=== PATIENT | male | born 1935 | race Caucasian/White ===

== ENCOUNTER 2017-05-08 09:57 | Outpatient (CLI) | payer MEDICARE, BC ==
--- NOTE | 2017-05-08 12:25 | MRI ---
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 FINDINGS: Multiplanar, multisequence noncontrast-enhanced MRI images of the brain demonstrate age-appropriate c ortical atrophy and deep white matter ischemic changes. No evidence of areas of intracranial masses, hemorrhages, or strokes seen. No evidence of areas of diffusion restriction seen. Normal flow voids seen in the major intracranial vessels. The patient has had previous right catarac t surgery. Some fluid is seen in the left mastoid air cells. IMPRESSION: No evidence of acute intracranial pathology noted. Some fluid is seen in the left mastoid air cells. POS: [facility]
== END 2017-05-08 09:58 | disposition home or self-care (01) ==
LOC: SCSMRI 09:57
PROVIDERS: ATTEND Ophthalmology
DX: H49.11 Fourth [trochlear] nerve palsy, right eye (principal)
CPT/HCPCS: 70551

== ENCOUNTER 2017-09-26 10:41 | Inpatient (IN) | payer MEDICARE, BC ==
[2017-09-26 11:49] LABS: #Eosinphils 0.1 thou/uL (0.0-0.7); #Lymphocytes 1.6 thou/uL (1.20-3.40); #Monocytes 0.5 thou/uL (0.11-0.59); #Neutrophils 3.8 thou/uL (1.40-6.50); %Basophils 0.3 % (0.0-1.0); %Eosinophils 1.2 % (0.0-10.0); %Lymphocytes 26.1 % (21.0-51.0); %Neutrophils 63.3 % (42.0-75.0); Hemoglobin 13.6 g/dL (14.0-18.0); Mean Corpuscular HGB CONC 32.7 g/dL (32.0-36.0); Mean Corpuscular Volume 97.8 fl (80.0-94.0); Mean Platelet Volume 7.7 fL (7.4-10.4); Platelet Count 192 thou/uL (130-400); RBC Distribution Width 12.2 % (11.5-14.5); Red Blood Cell (RBC) Count 4.26 mill/uL (4.70-6.10); White Blood Cell (WBC) Count 5.9 thou/uL (4.8-10.8)
[2017-09-26 11:54] LABS: PTT 26.5 SEC (22.9-36.1); Prothrombin Time 13.4 SEC (12.0-14.7)
[2017-09-26 12:06] LABS: ALT (SGPT) Less than 7 U/L (8-55); AST (SGOT) 17 U/L (5-34); Alkaline Phosphatase 58 U/L (40-150); Anion Gap 8 mmol/L (10-20); BUN (Urea Nitrogen) 24 mg/dL (8.4-25.7); Bilirubin, Total 0.5 mg/dL (0.2-1.2); Calc. Creatinine Clearance 0 mL/min (70-130); Calcium 9.7 mg/dL (7.8-10.44); Carbon Dioxide 30 mmol/L (23-31); Chloride 106 mmol/L (98-107); Estimated GFR-MDRD 46; Globulin 2.4 g/dL (2.4-3.5); Glucose 96 mg/dL (83-110); Protein, Total 6.4 g/dL (5.8-8.1); Sodium 139 mmol/L (136-145)
[2017-09-26] MEDS ORDERED: Pantoprazole 80 MG, Admixture Fee 1 EACH in Sodium Chloride 0.9% 100 ML IVP SCH (13:15)
[2017-09-26] MEDS ORDERED: Pantoprazole 40 MG VIAL ONE (13:24)
[2017-09-26] MEDS ORDERED: hydrALAZINE 20 MG/ML VIAL SLOW IVP PRN (15:17)
[2017-09-26] MEDS ORDERED: Ondansetron ODT 4 MG TAB PO PRN (15:17)
[2017-09-26] MEDS ORDERED: Labetalol HCl 100 MG/20 ML VIAL SLOW IVP PRN (15:17)
[2017-09-26] MEDS ORDERED: Zolpidem Tartrate 5 MG TAB PO PRN (15:17)
[2017-09-26 15:53] LABS: Bilirubin Negative (Negative); Blood, Urine Negative (Negative); Clarity CLOUDY (Clear); Glucose, Urine (Dipstick) Negative (Negative); Leukocyte Small (Negative); Nitrite Positive (Negative); Protein, Urine (Dipstick) Negative (Neg-Trace); Urobilinogen 0.2 mg/dL (0.2-1.0)
[2017-09-26 15:56] LABS: Bacteria/HPF 2+ HPF (None Seen); RBC/HPF 0-3 HPF (0-3); Squamous Epithelial None Seen HPF (0-3)
[2017-09-26 16:01] LABS: Pathc Cast-AUWi Flag 9.88 (0-2.49)
[2017-09-26] MEDS ORDERED: hydrALAZINE 20 MG/ML VIAL ONE (16:02)
--- NOTE | 2017-09-26 16:03 | HP ---
PRIMARY CARE PHYSICIAN: Dr. Jeffrey Worthy. Referred to the [facility] for GI bleeding. HISTORY OF PRESENT ILLNESS: The patient presents with rectal bleeding. The blood is described as br ight red to current jelly looking. He has had no pain with bleeding. No abdominal pain, no nausea, vomiting, no previous diarrhea. He had one small bleed this morning about 5 hours ago and then had a large one about 10:00 a.m. This is his fourth episode of significant bleeding which has been relate d to a presence of extensive diverticulosis throughout his colon. PAST MEDICAL AND SURGICAL HISTORY: Recent diagnosis of Parkinson disease about 6 months ago. He has a history of hypertension, diverticulosis with bleeding, coronary artery disease, post-PTCA in 1990, moderate aortic regurgitation, dyslipidemia, hypothyroidism, history of bladder cancer, status post cystectomy with a bladder built out of ileum tissue, history of esophageal dilatation, history of TIA with negative MRI of the brain, presence of abdominal aortic aneurysm, prostate cancer post-prostate ctomy disease-free, left hip surgery, EGD and colonoscopy in the past. CURRENT MEDICATIONS: Lipitor 40 mg a day, Protonix 40 mg a day, Synthroid 175 mcg a day, Zetia 10 mg a day, Plavix 75 mg a day, aspirin 81 mg a day, fludrocortisone 0.1 mg once a day, folic acid 0.4 mg a day, Coenzyme Q10 of 200 mg a day, escitalopram 5 mg a day, vitamin D3, Ocuvite, Sinemet 25/100 th ree times a day. ALLERGIES: No known drug allergies. SOCIAL HISTORY: Occasional alcohol, no tobacco. , lives with . DNR status, agrees, surrogate decision maker. FAMILY HISTORY: Negative for stroke, coronary artery disease or cancer. REVIEW OF SYSTEMS: General: No headaches, dizziness or fainting. Eyes: He wears glasses with a pr ism to correct chronic diplopia which has been related to a fall with trauma to his posterior skull. No flashing lights, no blurred vision. ENT: No ear pain or drainage. No nasal bleeding. No troub le swallowing. Cardiac: No chest pain, orthopnea or paroxysmal nocturnal dyspnea. Respiratory: No cough, wheezing or asthma. Gastrointestinal: See present illness. Genitourinary: No hematuria, d ysuria despite having had a prostatectomy and cystectomy. He has had a rebuilt pouch from ileal tiss ue and voids normally. Musculoskeletal: No pain or swelling in his arms or legs. Neurologic: Hist ory of TIA in the past, history of double vision corrected history of Parkinson's. Psychiatric: No anxiety, depression. Skin: No bruising, bleeding or rash. Heme/lymph: No tender or swollen lymph nodes in axilla, inguinal or cervical area. PHYSICAL EXAMINATION: GENERAL: He is an alert, oriented, cooperative, pleasant gentleman. VITAL SIGNS: Blood pressure 186/74, pulse 60 plus or minus, respirations 15-16, temperature 98 plus or minus, O2 sat 96-97 on room air. HEENT: Reveal pupils equal, round, and reactive to light. Extraocular movements are intact. Sclera e white. Tympanic membranes clear. Nose is clear. Oral mucous membranes are wet. Dental hygiene i s good. NECK: Supple, without jugular venous distention, adenopathy or thyromegaly. CHEST: Clear to auscultation and percussion. HEART: Regular rate and rhythm. First and second heart sounds are clear. There are no murmurs or g allops. ABDOMEN: Soft, bowel sounds are normal. There is no hepatosplenomegaly, no masses, no rebound, no b ruits. EXTREMITIES: Reveal no cyanosis, clubbing or edema. PULSES: Carotid, radial, femoral, and dorsalis pedis pulses intact and symmetric. SKIN: Warm and dry without bruises or rash. HEME/LYMPH: No tender or swollen lymph nodes in axilla, inguinal or cervical area. NEUROLOGICAL: Cranial nerves II-XII are intact. Moves all extremities. Sensation is intact. IMAGING: No EKG presented. No x-rays have been done. LABORATORY: INR 1.0. Comp metabolic profile shows a creatinine of 1.46, BUN 24. Liver function nate ts normal. Electrolytes normal. Hemoglobin 13.6, platelet count 192,000, white count 5.9. ADMITTING DIAGNOSES: 1. Recurrent rectal bleeding in patient with severe diverticulosis on aspirin and Plavix. 2. Coronary artery disease. 3. Parkinson disease. 4. Hypertension. 5. Severe diverticulosis. 6. Chronic kidney disease, stage 3 on current exam. 7. Dyslipidemia. 8. Hypothyroidism. PLAN: 1. IV fluids. 2. Serial CBC q.6 hours. 3. Stop aspirin and Plavix. 4. Transfuse for hemoglobin less than 7. 5. Consult Dr. Leandro Patel, his airport operations officer. 6. Clear liquids. 7. Reinstitute appropriate home medicines. 8. Parenteral blood pressure control for the immediate present with labetalol and Apresoline IV. 9. DNR status, stated by , agreed to by .
[2017-09-26 16:07] LABS: Hyaline Casts/LPF 0-3 HYALINE CAST LPF (0-3 Hyaline); Manual Microscopic Reviewed? No Path Casts Seen
[2017-09-26 17:10] VITALS: BMI 27.4
[2017-09-26] MEDS: Sodium Chloride 0.9% 1,000 ML IV SCH (17:38)
--- NOTE | 2017-09-26 18:17 | CON ---
DATE OF CONSULTATION: 09/26/2017 CHIEF COMPLAINT: Blood in stool. HISTORY OF PRESENT ILLNESS: Mr. Vernon is an 82-year-old man who has had recurrent diverticular bleed ing in the past followed by Dr. Patel. This morning, he had a small bloody stool around 8:00 a.m. He had a second larger red bloody stool later in the morning, so came onto the emergency room for [facility] er care. He has had no further bleeding since. He just had the urge to have a bowel movement, but o nly pass gas. He has had no abdominal pain, nausea, vomiting. He has been diagnosed with Parkinson since his last GI evaluation and it has been started on Parkinson's medications. He states with this , he has developed chronic constipation. He was given MiraLax daily, but developed too frequent stoo ls with that, so lately just been taking a laxative on an as needed basis a stimulant laxative. His weight has been stable. His last dose of aspirin and Plavix were this morning. PAST MEDICAL HISTORY: Recurrent diverticular bleeding, history of TIA for which he has been on aspir in and Plavix, Parkinson disease, aortic regurgitation, history of coronary intervention with PTCA, d yslipidemia, hypothyroidism, bladder cancer, status post cystectomy. His last EGD was in 05/[address] Patel which was basically normal. His last colonoscopy was in 06/2013 that showed diverticulosis throughout the colon. Three polyps were removed by snare, but not retrieved. PAST SURGICAL HISTORY: Cataract surgery, hernia repair, cystectomy, EGD and multiple colonoscopies. FAMILY HISTORY: Negative for GI malignancy. SOCIAL HISTORY: Rare alcohol use. No drugs or smoking. ALLERGIES: No known drug allergies. MEDICATIONS PRIOR TO ADMISSION: Plavix 75 mg daily, aspirin 81 mg daily, Protonix 40 mg daily, Lipit or, Synthroid, Zetia, fludrocortisone, escitalopram, coenzyme Q10, Folic acid, vitamin D3, Sinemet. REVIEW OF SYSTEMS: Negative x10 systems reviewed except as stated in the history of present illness. PHYSICAL EXAMINATION: VITAL SIGNS: Temperature 97.7, pulse 93, blood pressure 159/69. GENERAL: He is in no acute distress, alert and oriented x3. HEENT: Eyes have no scleral icterus. Oropharynx is clear, without lesions. NECK: No cervical or supraclavicular lymphadenopathy. LUNGS: Clear to auscultation bilaterally. HEART: Regular rate and rhythm without murmur. ABDOMEN: Soft, nontender, nondistended, bowel sounds are present. EXTREMITIES: No lower extremity edema. LABORATORY: White blood cell count 5.9, hemoglobin 13.6, which is stable from 06/2017, platelets 192 . INR 1.0. Creatinine 1.46, albumin 4.0. IMPRESSION: 1. Recurrent diverticular hemorrhage. He had one larger episode and one smaller episode this mornin g. He has had no further bleeding since then. His hemoglobin is stable at 13.6. 2. Constipation since diagnosis of Parkinson disease and starting Sinemet. RECOMMENDATIONS: 1. We will give a clear liquid diet and reassess hemoglobin in the morning and follow for recurrent bleeding. If he has no further bleeding and his hemoglobin remains stable, then we can advance his d iet tomorrow and potentially discharge home tomorrow. 2. Because he had too frequent loose stools with MiraLax 17 grams daily, then is recommended to take MiraLax half a dose every day and a glass of water and then follow up in GI clinic in a couple of we eks to help titrate laxatives for him. He has been having a bowel movement about once every 3-4 days associated with his chronic constipation.
[2017-09-26 18:30] LABS: Hemoglobin 13.7 g/dL (14.0-18.0); Mean Corpuscular HGB CONC 32.8 g/dL (32.0-36.0); Mean Corpuscular Hemoglobin 31.9 pg (27.0-31.0); Mean Corpuscular Volume 97.5 fl (80.0-94.0); Mean Platelet Volume 9.3 fL (7.4-10.4); Platelet Count 104 thou/uL (130-400); RBC Distribution Width 12.3 % (11.5-14.5); White Blood Cell (WBC) Count 8.3 thou/uL (4.8-10.8)
[2017-09-26 18:52] LABS: #Eosinphils 0.1 thou/uL (0.0-0.7); #Monocytes 0.8 thou/uL (0.11-0.59); #Neutrophils 5.4 thou/uL (1.40-6.50); %Basophils 0.3 % (0.0-1.0); %Eosinophils 1.1 % (0.0-10.0); %Lymphocytes 24.3 % (21.0-51.0); %Monocytes 9.4 % (0.0-10.0); PLT Morphology Comment PLT clumps seen-ADEQ
[2017-09-27 00:02] LABS: Hemoglobin 12.3 g/dL (14.0-18.0); Mean Corpuscular Hemoglobin 32.2 pg (27.0-31.0); Mean Corpuscular Volume 97.4 fl (80.0-94.0); Platelet Count 170 thou/uL (130-400); RBC Distribution Width 12.3 % (11.5-14.5); Red Blood Cell (RBC) Count 3.83 mill/uL (4.70-6.10); White Blood Cell (WBC) Count 1.8 thou/uL (4.8-10.8)
[2017-09-27 00:26] LABS: Band 6 % (5-11); Lymphocytes 35 % (21-51); MDiff Complete? YES; Monocytes 11 % (0-10); Neutrophil 47 % (42-75)
[2017-09-27] MEDS: Acetaminophen 325 MG TAB PO PRN ×3 (01:44→21:23)
[2017-09-27] MEDS: Sodium Chloride 0.9% 1,000 ML IV SCH ×3 (01:46→16:23)
[2017-09-27 06:27] LABS: #Eosinphils 0.1 thou/uL (0.0-0.7); #Lymphocytes 1.3 thou/uL (1.20-3.40); #Monocytes 0.6 thou/uL (0.11-0.59); #Neutrophils 5.4 thou/uL (1.40-6.50); %Basophils 0.3 % (0.0-1.0); %Eosinophils 1.6 % (0.0-10.0); %Lymphocytes 17.6 % (21.0-51.0); %Monocytes 7.5 % (0.0-10.0); Hemoglobin 11.6 g/dL (14.0-18.0); Mean Corpuscular HGB CONC 34.1 g/dL (32.0-36.0); Mean Corpuscular Hemoglobin 32.9 pg (27.0-31.0); Mean Corpuscular Volume 96.4 fl (80.0-94.0); Mean Platelet Volume 7.2 fL (7.4-10.4); Platelet Count 168 thou/uL (130-400); RBC Distribution Width 12.2 % (11.5-14.5); Red Blood Cell (RBC) Count 3.52 mill/uL (4.70-6.10); White Blood Cell (WBC) Count 7.4 thou/uL (4.8-10.8)
[2017-09-27 06:48] LABS: Anion Gap 8 mmol/L (10-20); BUN (Urea Nitrogen) 22 mg/dL (8.4-25.7); Calc. Creatinine Clearance 62 mL/min (70-130); Calcium 8.8 mg/dL (7.8-10.44); Carbon Dioxide 26 mmol/L (23-31); Chloride 109 mmol/L (98-107); Estimated GFR-MDRD 59; Glucose 92 mg/dL (83-110); Potassium 4.3 mmol/L (3.5-5.1); Sodium 139 mmol/L (136-145)
--- NOTE | 2017-09-27 10:28 | PDOC.PN ---
- Subjective Encounter Start Date: 09/27/17 Encounter Start Time: 10:27 Subjective: small dark blood BM this am - Objective MAR Reviewed: Yes Vital Signs & Weight: Vital Signs (12 hours) Temp Pulse Resp BP BP Pulse Ox 09/27/17 08:00 97.8 F 85 16 96 09/27/17 07:17 97.8 F 85 16 142/68 H 96 09/27/17 03:45 97.6 F 86 18 117/62 95 09/27/17 02:13 90 154/67 H 09/27/17 01:46 83 196/79 H 09/27/17 01:27 97.2 F L 73 18 186/75 H 96 I&O: 09/26/17 09/27/17 09/28/17 06:59 06:59 06:59 Intake Total 1737 180 Output Total 400 Balance 1337 180 Result Diagrams: 09/27/17 06:10 09/27/17 06:10 Phys Exam - Physical Examination Neck: no JVD Respiratory: clear to auscultation bilateral Cardiovascular: RRR, no significant murmur Gastrointestinal: soft, non-tender, positive bowel sounds Musculoskeletal: no edema Dx/Plan (1) Diverticulosis of colon with hemorrhage Code(s): K57.31 - DVRTCLOS OF LG INT W/O PERFORATION OR ABSCESS W BLEEDING Status: Acute (2) CAD (coronary artery disease) Code(s): I25.10 - ATHSCL HEART DISEASE OF [place] CORONARY ARTERY W/O ANG PCTRS Status: Chronic Qualifiers: Coronary Disease-Associated Artery/Lesion type: [place] artery [place] vs. transplanted heart: [place] heart Associated angina: without angina Qualified Code(s): I25.10 - Atherosclerotic heart disease of [place] coronary artery without angina pectoris (3) HTN (hypertension) Code(s): I10 - ESSENTIAL (PRIMARY) HYPERTENSION Status: Chronic Qualifiers: Hypertension type: essential hypertension Qualified Code(s): I10 - Essential (primary) hypertension (4) Hypothyroidism Code(s): E03.9 - HYPOTHYROIDISM, UNSPECIFIED Status: Chronic Qualifiers: Hypothyroidism type: unspecified Qualified Code(s): E03.9 - Hypothyroidism , unspecified - Plan monitor VS, rpt CBC in AM. poss DC tomorrow if no bleeding and Hg stable * .
[2017-09-27] MEDS: Carbidopa/Levodopa 25-100 mg Tablet PO SCH ×2 (14:32→21:21)
[2017-09-27] MEDS ORDERED: CARBIDOPA PO SCH (15:00)
[2017-09-27] MEDS ORDERED: LEVODOPA PO SCH (15:00)
--- NOTE | 2017-09-27 16:05 | PRG ---
DATE OF SERVICE: 09/27/2017. SUBJECTIVE: Mr. Vernon passed one small bloody stool this morning. He has not had any bleeding since yesterday morning until now. His hemoglobin did decrease a little bit. PHYSICAL EXAMINATION: VITAL SIGNS: Temperature 97.8, pulse 85, blood pressure 142/68. GENERAL: He is in no acute distress, alert and oriented x3. LUNGS: Clear to auscultation bilaterally. HEART: Regular rate and rhythm. ABDOMEN: Soft, nontender, nondistended. Bowel sounds are present. EXTREMITIES: No lower extremity edema. LABORATORY DATA: Hemoglobin is 11.6. IMPRESSION: Diverticular hemorrhage. He had a small bloody bowel movement this morning, but had gerardo e without any bowel movement since as other episode prior to admission yesterday. It is unclear if h e is still passing prior old blood or if this is a new recurrent bleeding episode. Either way, it do es not seem to be large volume as he is only having infrequent episodes and his hemoglobin has decrea sed from 13.7-11.6 without rapid changes. He is hemodynamically stable. RECOMMENDATIONS: Recheck his hemoglobin in the morning and follow him clinically today. He is not q uite ready for discharge. I will advance his diet today to a heart healthy diet.
[2017-09-27] MEDS ORDERED: Ezetimibe 10 MG TAB PO SCH (21:00)
[2017-09-27] MEDS ORDERED: Atorvastatin Calcium 40 MG TAB PO SCH (21:00)
[2017-09-28] MEDS: Sodium Chloride 0.9% 1,000 ML IV SCH ×2 (00:50→05:38)
[2017-09-28 05:26] LABS: #Eosinphils 0.1 thou/uL (0.0-0.7); #Lymphocytes 1.3 thou/uL (1.20-3.40); #Monocytes 0.6 thou/uL (0.11-0.59); #Neutrophils 3.8 thou/uL (1.40-6.50); %Basophils 0.3 % (0.0-1.0); %Eosinophils 2.1 % (0.0-10.0); %Lymphocytes 21.9 % (21.0-51.0); %Monocytes 10.5 % (0.0-10.0); %Neutrophils 65.2 % (42.0-75.0); Hemoglobin 10.8 g/dL (14.0-18.0); Mean Corpuscular Hemoglobin 32.2 pg (27.0-31.0); Mean Corpuscular Volume 97.4 fl (80.0-94.0); Mean Platelet Volume 7.5 fL (7.4-10.4); Platelet Count 161 thou/uL (130-400); RBC Distribution Width 12.3 % (11.5-14.5); Red Blood Cell (RBC) Count 3.35 mill/uL (4.70-6.10); White Blood Cell (WBC) Count 5.9 thou/uL (4.8-10.8)
[2017-09-28] MEDS ORDERED: Levothyroxine 175 MCG TAB PO SCH (06:00)
[2017-09-28] MEDS: Carbidopa/Levodopa 25-100 mg Tablet PO SCH (08:49)
[2017-09-28] MEDS ORDERED: Fludrocortisone Acetate 0.1 MG TAB PO SCH (09:00)
[2017-09-28] MEDS ORDERED: Escitalopram Oxalate 10 mg Tablet PO SCH (09:00)
[2017-09-28] MEDS ORDERED: Folic Acid 1 MG TAB PO SCH (09:00)
[2017-09-28] MEDS ORDERED: UBIDECARENONE 10 MG PO SCH (09:00)
[2017-09-28] MEDS ORDERED: cefTRIAXone\\ROCEPHIN 1 GM in Sodium Chloride 0.9% 100 ML IVPB SCH (11:00)
--- NOTE | 2017-09-28 12:45 | PDOC.EVN ---
Event Note - Event Note Event Note: DC SUMMARY #[id number]
[2017-09-28 13:54] VITALS: BP 163/73; TEMP 97.7
--- NOTE | 2017-09-28 21:24 | DIS ---
DATE OF ADMISSION: 09/26/2017 DATE OF DISCHARGE: 09/28/2017 ADMITTING DIAGNOSES: Gastrointestinal bleed, history of Parkinson's disease, history of hypertension , history of diverticulitis, history of coronary artery disease, history of mitral regurgitation, dys lipidemia, hypothyroidism, history of bladder cancer, history of cholecystectomy as well as history o f prostate cancer status post prostatectomy. DISCHARGE DIAGNOSES: Gastrointestinal bleed secondary to diverticular bleeding, history of Parkinson 's disease, history of coronary artery disease, history of diverticular bleeding, history of mitral r egurgitation, history of dyslipidemia, history of hypothyroidism, history of bladder cancer, history of cholecystectomy, history of prostate cancer status post prostatectomy. HOSPITAL COURSE: This is an 82-year-old male who was admitted to the hospital complaining of GI blee d, black tarry stools. Patient had evaluation by Internal Medicine done as well as Gastroenterology. Patient was monitored closely, followed by both teams had hemoglobin checked frequently. Patient a dmitting hemoglobin was 13.7 and plan at time of discharge hemoglobin was 7.8. Prior hemoglobin day before was 11.6. Patient denied any bleeding at that point in time of discharge, patient did have so me question of possible UTI with 2+ bacteria, leukocyte esterase, and positive nitrite seen on urinal ysis. Patient was advised to follow up with PCP and GI within a week for further management and care . Patient denied any nausea, vomiting, diarrhea, constipation, chest pain, fevers, chills, or shortn ess of breath at this point of time on discharge. DISPOSITION: Home. FOLLOWUP: With PCP and GI within 1 week. MEDICATIONS: Resume home medications. DIET: Low-fat, low-calorie, high-fiber diet. ACTIVITY: As tolerated with assistance as appropriate. PROGNOSIS: Good. CONDITION: Stable. Case and plan discussed with patient at length. He understands and agrees with the plan.
== END 2017-09-28 14:39 | disposition home or self-care (01) | DRG 379 ==
LOC: ERS 10:41 → T4-B 17:07
PROVIDERS: ADMIT Internal Medicine; ATTEND Internal Medicine
DX: K57.91 Diverticulosis of intestine, part unspecified, without perforation or abscess with bleeding (principal); G20 Parkinson's disease; I25.10 Atherosclerotic heart disease of native coronary artery without angina pectoris; I12.9 Hypertensive chronic kidney disease with stage 1 through stage 4 chronic kidney disease, or unspecified chronic kidney disease; I35.1 Nonrheumatic aortic (valve) insufficiency; N18.3 Chronic kidney disease, stage 3 (moderate); E78.5 Hyperlipidemia, unspecified; E03.9 Hypothyroidism, unspecified; Z90.6 Acquired absence of other parts of urinary tract; Z86.73 Personal history of transient ischemic attack (TIA), and cerebral infarction without residual deficits; Z85.46 Personal history of malignant neoplasm of prostate; Z79.899 Other long term (current) drug therapy; Z90.49 Acquired absence of other specified parts of digestive tract; Z95.5 Presence of coronary angioplasty implant and graft; Z85.51 Personal history of malignant neoplasm of bladder
CPT/HCPCS: 36415; 80048; 80053; 81003; 81015; 82274; 85025; 85610; 85730; 86850; 86900; 86901; 96365; 96366; 96375; 96376; C9113; J0360; J0696; J7050

== ENCOUNTER 2018-01-21 14:09 | Outpatient (CLI) | payer MEDICARE, BC | END 2018-01-21 14:10 | disposition home or self-care (01) | LOC: BICRAD 14:09 | PROVIDERS: ATTEND Internal Medicine | DX: R05 Cough (principal) | CPT/HCPCS: 36415; 71046; 84443 ==

== ENCOUNTER 2018-06-22 13:01 | Emergency (ER) | payer MEDICARE, BC ==
[2018-06-22 13:39] LABS: #Eosinphils 0.1 thou/uL (0.0-0.7); #Lymphocytes 1.4 thou/uL (1.20-3.40); #Monocytes 0.5 thou/uL (0.11-0.59); #Neutrophils 4.2 thou/uL (1.40-6.50); %Basophils 0.1 % (0.0-1.0); %Eosinophils 0.9 % (0.0-10.0); %Lymphocytes 22.4 % (21.0-51.0); %Monocytes 8.4 % (0.0-10.0); %Neutrophils 68.2 % (42.0-75.0); Hemoglobin 13.8 g/dL (14.0-18.0); Mean Corpuscular HGB CONC 31.8 g/dL (32.0-36.0); Mean Corpuscular Hemoglobin 30.4 pg (27.0-31.0); Mean Corpuscular Volume 95.7 fL (78.0-98.0); Mean Platelet Volume 7.5 fL (7.4-10.4); Platelet Count 235 thou/uL (130-400); RBC Distribution Width 12.4 % (11.5-14.5); Red Blood Cell (RBC) Count 4.54 mill/uL (4.70-6.10); White Blood Cell (WBC) Count 6.2 thou/uL (4.8-10.8)
[2018-06-22 13:51] LABS: ALT (SGPT) Less than 7 U/L (8-55); AST (SGOT) 18 U/L (5-34); Albumin 4.1 g/dL (3.4-4.8); Alkaline Phosphatase 65 U/L (40-150); Anion Gap 13 mmol/L (10-20); BUN (Urea Nitrogen) 22 mg/dL (8.4-25.7); Bilirubin, Total 0.7 mg/dL (0.2-1.2); Calc. Creatinine Clearance 0 mL/min (70-130); Calcium 10.4 mg/dL (7.8-10.44); Carbon Dioxide 27 mmol/L (23-31); Chloride 105 mmol/L (98-107); Estimated GFR-MDRD 38; Globulin 2.6 g/dL (2.4-3.5); Glucose 118 mg/dL (83-110); Potassium 4.5 mmol/L (3.5-5.1); Protein, Total 6.7 g/dL (5.8-8.1); Sodium 140 mmol/L (136-145)
--- NOTE | 2018-06-22 14:23 | RAD ---
PORTABLE CHEST 1 VIEW: Date: 06/22/18 Time: 1243 hours HISTORY: Syncope. FINDINGS: Comparison made with exam of 05/01/18. The heart size is borderline. The lungs are well expanded without focal areas of consolidation, pneum othoraces, gustavo pulmonary edema, or pleural effusions. IMPRESSION: No radiographic evidence of acute cardiopulmonary process. POS: [facility]
== END 2018-06-22 15:24 | disposition home or self-care (01) ==
LOC: ERS 13:01
DX: I95.1 Orthostatic hypotension (principal); G20 Parkinson's disease; I10 Essential (primary) hypertension; E78.00 Pure hypercholesterolemia, unspecified; I25.2 Old myocardial infarction; Z79.899 Other long term (current) drug therapy; Z79.82 Long term (current) use of aspirin
CPT/HCPCS: 71045; 80053; 84484; 85025; 93005

== ENCOUNTER 2018-07-13 14:28 | Outpatient (CLI) | payer MEDICARE, BC ==
[~2018-07-13 14:28] MED LIST: Iopamidol 370 76% 100 ML VIAL ONE
--- NOTE | 2018-07-13 17:40 | CT ---
CT OF THE ABDOMEN AND PELVIS WITH AND WITHOUT IV CONTRAST: (UROGRAM PROTOCOL) DATE: 07/13/18 INDICATION: History of bladder cancer, follow-up exam. CONTRAST: 40 mL [id number]. COMPARISON: Abdominopelvic CT dated 02/20/08 from [facility]. FINDINGS: ABDOMEN: There is a calcified granuloma within the right middle lobe. There is mild bibasilar atelectasis. There is a small hiatal hernia. Adrenal glands and spleen appear within normal limits. No focal hepat ic lesion is evident. The pancreas appears within normal limits. There are small renal cysts involving the left kidney. There is a 1.4 cm enhancing solid mass within the left mid kidney on image 59 of series 3. The precontrast Hounsfield unit was 50.66. The postcontr ast Hounsfield unit was 63.83. No hydronephrosis evident. No renal or ureteral calculus is noted. There is an infrarenal abdominal aortic aneurysm measuring 4.8 x 4.4 cm in its greatest mediolateral AP dimensions, respectively, where it previously measured 3.9 x 3.8 cm on the prior exam in 2007. The re are scattered vascular calcifications. There are multiple small anterior abdominal wall hernias containing a tiny amount of omental fat. The re is a fat-containing periumbilical hernia. PELVIS: There are postsurgical changes of a bladder resection with development of a neobladder within the rig ht lower quadrant of the abdomen and lower pelvis. Both ureters insert to the neobladder within the l ower abdomen. No gross mass is evident within the region of the neobladder. No gross urothelial lesio n is seen within the segmentally opacified ureters. No free fluid or enlarged lymph nodes are evident. There is scattered diverticula involving the colon. There is mild fat stranding seen adjacent to the sigmoid colon on image 132 of series 3. A component of sigmoid diverticula cannot be entirely exclude d. There is a moderate amount of retained stool. There is no evidence of bowel obstruction. There is a normal appendix in the right lower quadrant. There is mild dilatation of a loop of small bowel with in the right lower quadrant of the abdomen near the ileal anastomosis. There is postsurgical change of a fracture repair of the left femur. There is mild scattered degenera tive change. No suspicious osteolytic or osteoblastic lesion is evident. IMPRESSION: 1. Postsurgical change of a bladder resection with establishment of a neobladder. No gross urothelia l lesion is evident. 2. 1.5 cm enhancing solid lesion left mid kidney is suspicious for a renal cell carcinoma. This was seen as a hyperdense lesion on the comparison examination in 2007 and has mildly grown since the prio r exam. 3. Interval enlargement of infrarenal abdominal aortic aneurysm now measuring up to 4.4 x 4.8 cm, wh ere it previously measured 3.8 x 3.9 cm. 4. Sigmoid diverticula with mild pericolonic inflammatory stranding may reflect a mild amount of sig moid diverticulitis. 5. Small hiatal hernia. 6. Other chronic findings as above. CODE T. POS: [facility]
== END 2018-07-13 14:29 | disposition home or self-care (01) ==
LOC: BICCT 14:28
PROVIDERS: ATTEND Urology
DX: C67.9 Malignant neoplasm of bladder, unspecified (principal); K44.9 Diaphragmatic hernia without obstruction or gangrene; N28.89 Other specified disorders of kidney and ureter; K57.30 Diverticulosis of large intestine without perforation or abscess without bleeding; Z98.890 Other specified postprocedural states
CPT/HCPCS: 74178; Q9967

== ENCOUNTER 2018-10-08 08:23 | Outpatient (CLI) | payer MEDICARE, BC ==
--- NOTE | 2018-10-08 14:27 | NM ---
NUCLEAR MEDICINE BRAIN IMAGING: HISTORY: Unspecified abnormalities of gait and mobility TECHNIQUE: A Gustavo scan with axial tomographic images of the brain was obtained 3 hours following the intravenous administration of 4.8 mCi I-123 Ioflupane. The patient was pretreated with 130 mg of oral potassium iodide 1 hour prior to the injection. FINDINGS: There is normal symmetric uptake in the striata bilaterally, demonstrating symmetric, crescent-shaped focal regions of activity mirrored about the median plane. IMPRESSION: Normal exam.
== END 2018-10-08 08:24 | disposition home or self-care (01) ==
LOC: NM 08:23
PROVIDERS: ATTEND Psychiatry & Neurology Neurology
DX: G20 Parkinson's disease (principal); R26.9 Unspecified abnormalities of gait and mobility; I95.1 Orthostatic hypotension
CPT/HCPCS: 78607; A9584

== ENCOUNTER 2019-01-19 08:19 | Outpatient (CLI) | payer MEDICARE, BC ==
--- NOTE | 2019-01-19 09:29 | MRI ---
MRI BRAIN WITHOUT CONTRAST: HISTORY: Parkinson's disease COMPARISON: 05/08/2017 FINDINGS: No restricted diffusion is seen. There are multiple foci of T2 prolongation in the periventricular wh ite matter, consistent with chronic small vessel ischemic disease. The ventricular size is appropriate and the basilar cisterns are patent. No evidence of acute infarct, hemorrhage, midline shift or abnormal extra-axial fluid collections is seen. There is mild mucosal disease in the paranasal sinuses. A small amount of fluid is seen in the mastoi d air cells. IMPRESSION: No evidence of acute intracranial process.
== END 2019-01-19 08:20 | disposition home or self-care (01) ==
LOC: BICMRI 08:19
DX: G20 Parkinson's disease (principal)
CPT/HCPCS: 70551

== ENCOUNTER 2019-03-18 07:52 | Outpatient (CLI) | payer MEDICARE, BC ==
--- NOTE | 2019-03-18 08:47 | ULT ---
ULTRASOUND ABDOMINAL AORTA: HISTORY: Abdominal aortic aneurysm FINDINGS: There is a 3.5 x 4.3 x 4.1 cm infrarenal abdominal aortic aneurysm. The right common iliac artery measures 6 mm in diameter and the left common iliac artery also measure s 6 mm in diameter. The exam is limited by bowel gas. Impression abdominal aortic aneurysm measuring 3.5 x 4.3 x 4.1 cm.
== END 2019-03-18 07:53 | disposition home or self-care (01) ==
LOC: BICULT 07:52
PROVIDERS: ATTEND Internal Medicine
DX: I71.4 Abdominal aortic aneurysm, without rupture (principal)
CPT/HCPCS: 36415; 76706; 80053; 80061; 80069; 81001; 82570; 84153; 84156; 84443; 85025

== ENCOUNTER 2020-07-13 10:23 | Outpatient (CLI) | payer MEDICARE, BC ==
--- NOTE | 2020-07-13 11:37 | CT ---
CT Abdomen Pelvis WO Con 07/13/2020 10:40 AM HISTORY: Follow-up abdominal aortic aneurysm. COMPARISON: CT abdomen 02/20/2008 Technique: Multiple contiguous axial CT images are obtained through the abdomen and pelvis without IV contrast. Coronal reformats are provided. FINDINGS: This examination is limited for the evaluation of solid organs and vascular structures due to the lac k of intravenous contrast. Lower Chest: Vascular calcifications are seen in the limited visualized coronary arteries as well as distal thoracic aorta. Lung bases are clear. Liver: Grossly normal non-enhanced CT appearance. Gallbladder: Within normal limits for CT imaging. Pancreas: Grossly normal nonenhanced CT appearance. Spleen: Grossly normal nonenhanced CT appearance. Adrenals: Grossly normal nonenhanced CT appearance. Kidneys and ureters: Hypodense lesions inferior pole left kidney measuring 1.7 cm and 1.4 cm in great est dimension with 1.4 cm hyperdense cystic lesion also seen inferior pole left kidney. The hyperdense lesion was seen on study in 2007 and unchanged likely due to Bosniak type II renal cystic lesion. Hypodense lesion anterior aspect inferior pole left kidney was seen on prior study and likely represents a cyst given stability over this period of time. Hypodense lesion adjacent to the h yperdense cystic lesion is difficult to characterize on this nonenhanced CT exam but does demonstrate fluid attenuation suggesting a cyst on nonenhanced imaging. Urinary bladder: There are findings suggestive of neobladder in the pelvis with multiple surgical cli ps present and evidence of prostatectomy. Lymph Nodes: No enlarged lymph nodes. Bowel: Postoperative changes loop of small bowel in the right lower quadrant. There is extensive colo angela diverticulosis. Appendix: The appendix is normal in caliber. Peritoneum: No free fluid, free air, or fluid collection. Retroperitoneum: within normal limits. Vessels: Vascular calcifications are seen in the abdominal aorta and iliac arteries. There is a lobul ated juxtarenal abdominal aortic aneurysm which measures 5.4 cm transverse x4.4 cm AP with measurements on prior study in 2007 of 3.8 cm transverse x3.7 cm AP. Greatest dimension on ultrasound examination 2019 was 4.3 cm. The iliac arteries are normal in caliber. Abdominal Wall: Tiny densities left anterior abdominal wall the level of the pelvis likely due to mes h material from prior surgery. Ventilatory stranding is seen in the left inguinal region related to prior left inguinal hernia repair. A fat-containing ventral abdominal wall hernia is present as well as tiny fat-containing umbilical hernia. Bones: Postoperative changes left hip are present. Degenerative changes are seen in the spine. IMPRESSION: 1. Lobulated juxtarenal abdominal aortic aneurysm measuring 5.4 cm x 4.4 cm which has enlarged compar ed to study in 2007 with measurements on prior study of 3.8 cm in maximal dimension. 2. Vascular calcifications. 3. Postoperative changes related to prostatectomy with findings likely due to formation of neobladder . There is no hydronephrosis present. 4. 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 5. Colonic diverticulosis.
== END 2020-07-13 10:24 | disposition home or self-care (01) ==
LOC: BICCT 10:23
PROVIDERS: ATTEND Thoracic Surgery (Cardiothoracic Vascular Surgery)
DX: I71.4 Abdominal aortic aneurysm, without rupture (principal); I70.0 Atherosclerosis of aorta; N28.1 Cyst of kidney, acquired; K57.30 Diverticulosis of large intestine without perforation or abscess without bleeding; I70.8 Atherosclerosis of other arteries; Z90.79 Acquired absence of other genital organ(s)
CPT/HCPCS: 74176

== ENCOUNTER 2020-07-28 13:45 | Inpatient (IN) | payer MEDICARE, BC ==
[2020-07-28 16:53] LABS: #Eosinphils 0.1 10x3/uL (0.0-0.5); #Monocytes 0.6 10x3/uL (0.0-1.1); #Neutrophils 3.9 10x3/uL (1.5-8.4); %Basophils 0.6 % (0.0-2.0); %Eosinophils 1.6 % (0.0-6.0); %Lymphocytes 26.6 % (18.0-47.0); %Monocytes 9.5 % (0.0-10.0); %Neutrophils 61.4 % (40.0-75.0); Hemoglobin 11.8 g/dL (13.5-17.5); Mean Corpuscular HGB CONC 31.9 g/dL (32.0-36.0); Mean Corpuscular Hemoglobin 31.6 pg (27.0-33.0); Mean Corpuscular Volume 99.2 fl (81.2-95.1); Mean Platelet Volume 10.6 fl (7.4-10.4); Platelet Count 183 10x3/uL (150-450); RBC Distribution Width 12.4 % (11.5-14.5); Red Blood Cell (RBC) Count 3.73 10x6/uL (4.32-5.72); White Blood Cell (WBC) Count 6.4 10x3/uL (3.5-10.5)
[2020-07-28 17:05] LABS: Anion Gap 11 mmol/L (10-20); BUN (Urea Nitrogen) 30 mg/dL (8.4-25.7); Calc. Creatinine Clearance 0 mL/min (70-130); Calcium 9.7 mg/dL (7.8-10.44); Carbon Dioxide 28 mmol/L (23-31); Chloride 106 mmol/L (98-107); Glucose 90 mg/dL (83-110); Sodium 140 mmol/L (136-145)
[2020-08-02] MEDS ORDERED: Fentanyl 250 MCG/5 ML VIAL ONE (06:50)
[2020-08-02] MEDS ORDERED: Phenylephrine 10 MG/ML VIAL ONE (06:50)
[2020-08-02] MEDS ORDERED: Heparin 10,000 UNITS/ 10 ML VIAL ONE (06:56)
[2020-08-02] MEDS ORDERED: Norepinephrine 4 MG/4 ML VIAL ONE (07:03)
[2020-08-02] MEDS ORDERED: Albumin 5% 500 ML ONE (07:03)
[2020-08-02] MEDS ORDERED: Dexmedetomidine 200 MCG/2 ML VIAL ONE (07:03)
[2020-08-02] MEDS ORDERED: Midazolam HCl 2 mg/2 ml Vial ONE (07:12)
[2020-08-02] MEDS ORDERED: Ondansetron ODT 4 MG TAB ONE (07:12)
[2020-08-02] MEDS ORDERED: Vecuronium 10 MG VIAL ONE (08:03)
[2020-08-02] MEDS ORDERED: Ondansetron PF 4 MG/2 ML Vial ONE (08:03)
[2020-08-02] MEDS ORDERED: Rocuronium Bromide 10 MG/ML (10ML VIAL) ONE (08:03)
[2020-08-02] MEDS ORDERED: Glycopyrrolate 0.2 MG/ML 5 ML SYRINGE ONE (08:03)
[2020-08-02] MEDS ORDERED: Dexamethasone 20 MG/5 ML VIAL ONE (08:03)
[2020-08-02] MEDS ORDERED: Lidocaine 1% PF 5 ML VIAL ONE (08:03)
[2020-08-02] MEDS ORDERED: PROPOFOL 200 MG/20 ML VIAL ONE (08:03)
[2020-08-02] MEDS ORDERED: Nitroglycerin 50 MG/250 ML BOT 250 ML ONE (08:26)
[2020-08-02] MEDS ORDERED: Protamine Sulfate 50 MG/5 ML VIAL ONE (11:12)
[2020-08-02] MEDS ORDERED: Acetaminophen 325 MG TAB PO PRN (12:23)
[2020-08-02] MEDS ORDERED: Ondansetron PF 4 MG/2 ML Vial IVP PRN (12:23)
[2020-08-02] MEDS ORDERED: HYDROcodone/Acetaminophen 5/325 mg Tablet PO PRN ×2 (12:23)
[2020-08-02] MEDS ORDERED: Norepinephrine 8 MG/0.9% NS 250 ML IVPB PRN (12:23)
[2020-08-02] MEDS ORDERED: Fentanyl 100 MCG/2 ML VIAL ONE ×2 (13:42→16:06)
[2020-08-02] MEDS ORDERED: Sterile Water 10 ML ONE (14:10)
[2020-08-02] MEDS ORDERED: Ondansetron HCl/PF 4 MG/2 ML Vial IVP PRN (15:23)
[2020-08-02] MEDS ORDERED: Promethazine HCl 25 MG/ML VIAL SLOW IVP PRN (15:23)
[2020-08-02] MEDS ORDERED: Promethazine HCl 25 MG/ML VIAL IM PRN (15:23)
[2020-08-02 15:24] LABS: #Monocytes 0.4 thou/uL (0.11-0.59); #Neutrophils 9.5 thou/uL (1.40-6.50); %Basophils 0.4 % (0.0-1.0); %Eosinophils 0.1 % (0.0-10.0); %Lymphocytes 9.4 % (21.0-51.0); %Neutrophils 86.2 % (42.0-75.0); Hemoglobin 9.7 g/dL (14.0-18.0); Mean Corpuscular HGB CONC 32.2 g/dL (32.0-36.0); Mean Corpuscular Hemoglobin 32.3 pg (27.0-31.0); Mean Platelet Volume 8.1 fL (7.4-10.4); Platelet Count 156 thou/uL (130-400); RBC Distribution Width 11.8 % (11.5-14.5); Red Blood Cell (RBC) Count 3.01 mill/uL (4.70-6.10)
[2020-08-02] MEDS: Lactated Ringer's 1,000 ML IV SCH ×2 (17:46→19:24)
[2020-08-02] MEDS: CEFAZOLIN 2 GM in Premix Bag 1 BAG IVPB SCH ×2 (17:46→23:24)
[2020-08-02 17:48] VITALS: BMI 27.3
[2020-08-02] MEDS: Fentanyl 100 MCG/2 ML VIAL SLOW IVP PRN ×3 (19:24→23:22)
[2020-08-03] MEDS ORDERED: Morphine 2 MG/ML VIAL SLOW IVP PRN (00:06)
[2020-08-03] MEDS ORDERED: Morphine 10 MG/ML VIAL SLOW IVP PRN (00:06)
[2020-08-03] MEDS ORDERED: Naloxone HCl 0.4 mg/ml Vial ONE ×5 (02:59→03:23)
[2020-08-03] MEDS ORDERED: Naloxone HCl 0.4 mg/ml Vial IV PRN (04:04)
[2020-08-03] MEDS: Lactated Ringer's 1,000 ML IV SCH ×3 (04:26→19:46)
[2020-08-03 04:29] LABS: #Lymphocytes 0.6 thou/uL (1.20-3.40); #Monocytes 0.9 thou/uL (0.11-0.59); #Neutrophils 10.5 thou/uL (1.40-6.50); %Basophils 0.1 % (0.0-1.0); %Eosinophils 0.1 % (0.0-10.0); %Lymphocytes 4.8 % (21.0-51.0); %Monocytes 7.5 % (0.0-10.0); %Neutrophils 87.6 % (42.0-75.0); Hemoglobin 9.8 g/dL (14.0-18.0); Mean Corpuscular HGB CONC 31.9 g/dL (32.0-36.0); Mean Corpuscular Hemoglobin 32.3 pg (27.0-31.0); Mean Platelet Volume 7.9 fL (7.4-10.4); Platelet Count 189 thou/uL (130-400); Red Blood Cell (RBC) Count 3.05 mill/uL (4.70-6.10)
[2020-08-03 04:52] LABS: Anion Gap 15 mmol/L (10-20); BUN (Urea Nitrogen) 30 mg/dL (8.4-25.7); Calc. Creatinine Clearance 35 mL/min (70-130); Calcium 7.9 mg/dL (7.8-10.44); Carbon Dioxide 20 mmol/L (23-31); Chloride 111 mmol/L (98-107); Glucose 200 mg/dL (83-110); Potassium 6.1 mmol/L (3.5-5.1); Sodium 140 mmol/L (136-145)
[2020-08-03] MEDS: Nitroglycerin 50 MG/250 ML BOT 250 ML IVPB PRN (05:04)
[2020-08-03] MEDS: CEFAZOLIN 2 GM in Premix Bag 1 BAG IVPB SCH (07:53)
[2020-08-03] MEDS: Fentanyl 100 MCG/2 ML VIAL SLOW IVP PRN ×7 (08:46→20:58)
[2020-08-03] MEDS: Enoxaparin Sodium 30 MG/0.3 ML SYRINGE SC SCH (08:49)
[2020-08-03] MEDS: Aspirin Chewable 81 MG TAB PO SCH (10:30)
[2020-08-03] MEDS: Acetaminophen 650 MG Suppository PR PRN ×2 (13:36→21:20)
[2020-08-03] MEDS: Budesonide 0.5 MG/2 ML NEB NEB SCH (19:04)
[2020-08-04] MEDS: Fentanyl 100 MCG/2 ML VIAL SLOW IVP PRN ×6 (00:13→20:05)
[2020-08-04] MEDS: Lactated Ringer's 1,000 ML IV SCH ×5 (00:14→21:04)
[2020-08-04 03:52] LABS: #Lymphocytes 1.2 thou/uL (1.20-3.40); #Monocytes 1.2 thou/uL (0.11-0.59); %Basophils 0.2 % (0.0-1.0); %Eosinophils 0.1 % (0.0-10.0); %Lymphocytes 9.8 % (21.0-51.0); %Monocytes 9.4 % (0.0-10.0); %Neutrophils 80.6 % (42.0-75.0); Hemoglobin 8.8 g/dL (14.0-18.0); Mean Corpuscular HGB CONC 33.1 g/dL (32.0-36.0); Mean Corpuscular Hemoglobin 33.2 pg (27.0-31.0); Mean Platelet Volume 7.7 fL (7.4-10.4); Platelet Count 144 thou/uL (130-400); Red Blood Cell (RBC) Count 2.63 mill/uL (4.70-6.10); White Blood Cell (WBC) Count 12.4 thou/uL (4.8-10.8)
[2020-08-04 04:11] LABS: Anion Gap 12 mmol/L (10-20); BUN (Urea Nitrogen) 32 mg/dL (8.4-25.7); Calc. Creatinine Clearance 38 mL/min (70-130); Calcium 8.1 mg/dL (7.8-10.44); Carbon Dioxide 22 mmol/L (23-31); Chloride 112 mmol/L (98-107); Glucose 129 mg/dL (83-110); Potassium 4.7 mmol/L (3.5-5.1); Sodium 141 mmol/L (136-145)
[2020-08-04] MEDS: Nitroglycerin 50 MG/250 ML BOT 250 ML IVPB PRN (05:30)
[2020-08-04] MEDS: Levothyroxine 175 MCG TAB PO SCH ×2 (05:44→07:17)
[2020-08-04] MEDS: Budesonide 0.5 MG/2 ML NEB NEB SCH ×2 (08:21→19:02)
[2020-08-04] MEDS: Enoxaparin Sodium 30 MG/0.3 ML SYRINGE SC SCH (08:59)
[2020-08-04] MEDS: Aspirin Chewable 81 MG TAB PO SCH (08:59)
[2020-08-05] MEDS: Fentanyl 100 MCG/2 ML VIAL SLOW IVP PRN ×3 (00:24→07:56)
[2020-08-05 05:05] LABS: Anion Gap 12 mmol/L (10-20); BUN (Urea Nitrogen) 25 mg/dL (8.4-25.7); Calc. Creatinine Clearance 47 mL/min (70-130); Calcium 8.8 mg/dL (7.8-10.44); Carbon Dioxide 24 mmol/L (23-31); Chloride 112 mmol/L (98-107); Glucose 92 mg/dL (83-110); Potassium 4.3 mmol/L (3.5-5.1); Sodium 144 mmol/L (136-145)
[2020-08-05] MEDS: Levothyroxine 175 MCG TAB PO SCH (05:18)
[2020-08-05] MEDS: Budesonide 0.5 MG/2 ML NEB NEB SCH ×2 (07:14→18:29)
[2020-08-05] MEDS: Lactated Ringer's 1,000 ML IV SCH ×2 (08:30→17:31)
[2020-08-05] MEDS: Enoxaparin Sodium 30 MG/0.3 ML SYRINGE SC SCH (09:05)
[2020-08-05] MEDS: Escitalopram Oxalate 10 mg Tablet PO SCH (09:05)
[2020-08-05] MEDS: Aspirin Chewable 81 MG TAB PO SCH (09:05)
[2020-08-05] MEDS ORDERED: Acetaminophen 325 MG TAB PO PRN (16:45)
[2020-08-05] MEDS: Amlodipine 5 MG TAB PO SCH (20:18)
[2020-08-06] MEDS: Levothyroxine 175 MCG TAB PO SCH (05:24)
[2020-08-06] MEDS: Budesonide 0.5 MG/2 ML NEB NEB SCH ×2 (07:08→18:14)
[2020-08-06] MEDS: Escitalopram Oxalate 10 mg Tablet PO SCH (08:44)
[2020-08-06] MEDS: Enoxaparin Sodium 30 MG/0.3 ML SYRINGE SC SCH (08:44)
[2020-08-06] MEDS: Aspirin Chewable 81 MG TAB PO SCH (08:44)
[2020-08-06] MEDS ORDERED: Furosemide 40 MG/4 ML VIAL SLOW IVP SCH (09:45)
[2020-08-06] MEDS: Lactated Ringer's 1,000 ML IV SCH (13:39)
[2020-08-06] MEDS: Amlodipine 5 MG TAB PO SCH (19:40)
[2020-08-07] MEDS: Levothyroxine 175 MCG TAB PO SCH (03:04)
[2020-08-07] MEDS: Amlodipine 5 MG TAB PO SCH ×2 (08:03→19:41)
[2020-08-07] MEDS: Aspirin Chewable 81 MG TAB PO SCH (08:03)
[2020-08-07] MEDS: Escitalopram Oxalate 10 mg Tablet PO SCH (08:04)
[2020-08-07] MEDS: Enoxaparin Sodium 30 MG/0.3 ML SYRINGE SC SCH (08:04)
[2020-08-07] MEDS: Budesonide 0.5 MG/2 ML NEB NEB SCH ×2 (09:03→19:07)
[2020-08-08] MEDS: Amlodipine 5 MG TAB PO SCH (03:51)
[2020-08-08] MEDS: Levothyroxine 175 MCG TAB PO SCH (03:51)
[2020-08-08] MEDS ORDERED: Polyethylene Glycol 3350 17 GM Packet PO PRN (06:48)
[2020-08-08] MEDS ORDERED: traMADol HCl 50 MG TAB PO PRN (07:00)
[2020-08-08] MEDS ORDERED: Furosemide 40 MG TAB PO SCH (07:15)
[2020-08-08] MEDS: Budesonide 0.5 MG/2 ML NEB NEB SCH (07:40)
[2020-08-08] MEDS: Escitalopram Oxalate 10 mg Tablet PO SCH (08:13)
[2020-08-08] MEDS: Enoxaparin Sodium 30 MG/0.3 ML SYRINGE SC SCH (08:14)
[2020-08-08] MEDS: Aspirin Chewable 81 MG TAB PO SCH (08:14)
[2020-08-08] MEDS ORDERED: Polyethylene Glycol 3350 17 GM Packet PO SCH (09:00)
[2020-08-08 11:59] VITALS: BP 146/65; TEMP 97.5
== END 2020-08-08 11:55 | disposition home or self-care (01) | DRG 268 ==
LOC: SURG A 08-02 06:14 → CCU 08-02 17:36 → SURG A 08-05 16:54
PROVIDERS: ADMIT Thoracic Surgery (Cardiothoracic Vascular Surgery); ATTEND Thoracic Surgery (Cardiothoracic Vascular Surgery)
PROC: 04R00JZ Replacement of Abdominal Aorta with Synthetic Substitute, Open Approach (ICD-10-PCS; principal; 2020-08-02)
DX: I71.4 Abdominal aortic aneurysm, without rupture (principal); J96.91 Respiratory failure, unspecified with hypoxia; Z20.822 Contact with and (suspected) exposure to COVID-19; I25.10 Atherosclerotic heart disease of native coronary artery without angina pectoris; E78.5 Hyperlipidemia, unspecified; E03.9 Hypothyroidism, unspecified; I12.9 Hypertensive chronic kidney disease with stage 1 through stage 4 chronic kidney disease, or unspecified chronic kidney disease; N18.9 Chronic kidney disease, unspecified; F32.9 Major depressive disorder, single episode, unspecified; E66.01 Morbid (severe) obesity due to excess calories; Z79.890 Hormone replacement therapy; Z79.899 Other long term (current) drug therapy; I25.2 Old myocardial infarction; Z85.46 Personal history of malignant neoplasm of prostate; Z68.25 Body mass index [BMI] 25.0-25.9, adult; Z79.82 Long term (current) use of aspirin
CPT/HCPCS: 36415; 36416; 71045; 80048; 84443; 85025; 86850; 86900; 86901; 93005; 93010; 94640; C1751; J0690; J1100; J1642; J1644; J1650; J1940; J2250; J2270; J2370; J2405; J2704; J2720; J3010; J7620; J7626; P9045; Q0162

== ENCOUNTER 2020-07-28 15:05 | Outpatient (CLI) | payer MEDICARE, BC ==
[2020-07-29 01:49] LABS: SARS-CoV-2 PCR by NAA Not Detected (NotDetected)
== END 2020-07-28 15:06 | disposition home or self-care (01) ==
LOC: LABBT 15:05
PROVIDERS: ATTEND Thoracic Surgery (Cardiothoracic Vascular Surgery)
DX: Z01.812 Encounter for preprocedural laboratory examination (principal); I71.4 Abdominal aortic aneurysm, without rupture; Z20.822 Contact with and (suspected) exposure to COVID-19
CPT/HCPCS: 80048; 85025; 86850; 86900; 86901; 86920; U0003; U0005; 87635

== ENCOUNTER 2020-09-18 12:58 | Emergency (ER) | payer MEDICARE, BC | END 2020-09-18 15:40 | disposition home or self-care (01) | LOC: ERS 12:58 | DX: S00.01XA Abrasion of scalp, initial encounter (principal); Z79.899 Other long term (current) drug therapy; Z79.82 Long term (current) use of aspirin; I10 Essential (primary) hypertension; E78.00 Pure hypercholesterolemia, unspecified; I25.2 Old myocardial infarction; Z87.891 Personal history of nicotine dependence; W01.198A Fall on same level from slipping, tripping and stumbling with subsequent striking against other object, initial encounter | CPT/HCPCS: 70450; 72125 ==

== ENCOUNTER 2023-08-05 07:49 | Outpatient (CLI) | payer MEDICARE, BC | END 2023-08-05 07:50 | disposition home or self-care (01) | LOC: BICCT 07:49 | PROVIDERS: ATTEND Physician Assistant | DX: K43.9 Ventral hernia without obstruction or gangrene (principal) | CPT/HCPCS: 74176 ==

== ENCOUNTER 2025-04-22 21:55 | Inpatient (IN) | payer MEDICARE, BC ==
[2025-04-22 22:35] LABS: #Basophils 0.05 10x3/uL (0.0-0.2); #Eosinophils 0.23 10x3/uL (0.0-0.7); #Monocytes 0.68 10x3/uL (0.11-0.59); #Neutrophils 3.18 10x3/uL (1.40-6.50); %Basophils 0.5 % (0.0-1.0); %Eosinophils 2.5 % (0.0-10.0); %Lymphocytes 54.6 % (21.0-51.0); %Monocytes 7.4 % (0.0-10.0); %Neutrophils 34.8 % (42.0-75.0); Hematocrit 31.2 % (42.0-52.0); Hemoglobin 10.1 g/dL (14.0-18.0); Mean Corpuscular Hemoglobin 30.6 pg (27.0-31.0); Mean Corpuscular Volume 94.5 fL (78.0-98.0); Platelet Count 191 10x3/uL (130-400); Red Blood Cell (RBC) Count 3.30 mill/uL (4.70-6.10); White Blood Cell (WBC) Count 9.16 10x3/uL (4.8-10.8)
[2025-04-22 22:49] LABS: ALT (SGPT) 20 U/L (Less than 45); AST (SGOT) 22 U/L (11-34); Albumin 3.3 g/dL (3.1-4.5); Alkaline Phosphatase 80 U/L (40-110); Anion Gap 12 mmol/L (10-20); BUN (Urea Nitrogen) 31 mg/dL (8.4-25.7); Bilirubin, Total 0.4 mg/dL (0.3-1.2); Calc. Creatinine Clearance 0 mL/min (70-130); Calcium 9.7 mg/dL (7.8-10.44); Carbon Dioxide 22 mmol/L (23-31); Chloride 111 mmol/L (98-107); Globulin 2.9 g/dL (2.4-3.5); Glucose 88 mg/dL (83-110); INR-International Normal Ratio 1.0; Potassium 4.6 mmol/L (3.5-5.1); Prothrombin Time 13.8 sec (12.0-14.7); Sodium 140 mmol/L (136-145)
[2025-04-22 22:50] LABS: PTT 31.1 sec (22.9-36.1)
[2025-04-23] MEDS ORDERED: Furosemide 40 MG (4 mL) VIAL ONE (00:53)
[2025-04-23] MEDS ORDERED: Nitroglycerin 2% Ointment 1 INCH/1 GM Packet ONE (00:54)
[2025-04-23] MEDS ORDERED: niCARdipine 25 MG in Sodium Chloride 0.9% 250 ML 250 ML IVPB SCH (01:45)
[2025-04-23] MEDS ORDERED: Calcium Carbonate 500 MG ChewTAB PO PRN (02:26)
[2025-04-23 03:56] VITALS: BMI 25.7
[2025-04-23 05:11] LABS: #Basophils 0.05 10x3/uL (0.0-0.2); #Eosinophils 0.16 10x3/uL (0.0-0.7); #Monocytes 0.63 10x3/uL (0.11-0.59); #Neutrophils 4.26 10x3/uL (1.40-6.50); %Basophils 0.6 % (0.0-1.0); %Eosinophils 1.8 % (0.0-10.0); %Lymphocytes 42.6 % (21.0-51.0); %Monocytes 7.1 % (0.0-10.0); %Neutrophils 47.8 % (42.0-75.0); Hematocrit 33.0 % (42.0-52.0); Hemoglobin 10.4 g/dL (14.0-18.0); Mean Corpuscular Hemoglobin 30.6 pg (27.0-31.0); Mean Corpuscular Volume 97.1 fL (78.0-98.0); Platelet Count 187 10x3/uL (130-400); Red Blood Cell (RBC) Count 3.40 mill/uL (4.70-6.10); White Blood Cell (WBC) Count 8.90 10x3/uL (4.8-10.8)
[2025-04-23 05:25] LABS: ALT (SGPT) 18 U/L (Less than 45); AST (SGOT) 24 U/L (11-34); Albumin 3.3 g/dL (3.1-4.5); Alkaline Phosphatase 77 U/L (40-110); Anion Gap 13 mmol/L (10-20); BUN (Urea Nitrogen) 28 mg/dL (8.4-25.7); Bilirubin, Total 0.5 mg/dL (0.3-1.2); Calc. Creatinine Clearance 26 mL/min (70-130); Calcium 9.8 mg/dL (7.8-10.44); Carbon Dioxide 17 mmol/L (23-31); Chloride 112 mmol/L (98-107); Globulin 2.8 g/dL (2.4-3.5); Glucose 105 mg/dL (83-110); Potassium 4.4 mmol/L (3.5-5.1); Sodium 138 mmol/L (136-145)
[2025-04-23] MEDS: Furosemide 40 MG (4 mL) VIAL SLOW IVP SCH (05:47)
[2025-04-23] MEDS: Acetaminophen 325 MG TAB PO PRN (07:38)
[2025-04-23] MEDS: Mupirocin 1 GM TUBE TP SCH (07:39)
[2025-04-23] MEDS: Metoprolol Succinate XL 25 MG ER.TAB PO SCH (12:45)
[2025-04-23] MEDS: FLU (Fluad Triv) 25-26 (65UP)PF 45 MCG/0.5 ML Syringe IM ONE (12:50)
[2025-04-23] MEDS: PNEUMOC 20-VAL CONJ-DIP CRM/PF 0.5 ML SYRINGE IM ONE (12:50)
[2025-04-23] MEDS: niCARdipine 50 MG, Admixture Fee 1 EACH in Sodium Chloride 0.9% 250 ML 230 ML IV SCH (17:20)
[2025-04-23] MEDS: Aspirin 81 mg Enteric Coated Tablet PO SCH (21:00)
[2025-04-24 04:13] LABS: #Basophils 0.05 10x3/uL (0.0-0.2); #Eosinophils 0.22 10x3/uL (0.0-0.7); #Monocytes 0.73 10x3/uL (0.11-0.59); #Neutrophils 3.77 10x3/uL (1.40-6.50); %Basophils 0.5 % (0.0-1.0); %Eosinophils 2.3 % (0.0-10.0); %Lymphocytes 49.5 % (21.0-51.0); %Monocytes 7.7 % (0.0-10.0); %Neutrophils 39.8 % (42.0-75.0); Hematocrit 31.1 % (42.0-52.0); Hemoglobin 10.1 g/dL (14.0-18.0); Mean Corpuscular Hemoglobin 30.1 pg (27.0-31.0); Mean Corpuscular Volume 92.6 fL (78.0-98.0); Platelet Count 203 10x3/uL (130-400); Red Blood Cell (RBC) Count 3.36 mill/uL (4.70-6.10); White Blood Cell (WBC) Count 9.49 10x3/uL (4.8-10.8)
[2025-04-24 04:29] LABS: ALT (SGPT) 15 U/L (Less than 45); AST (SGOT) 21 U/L (11-34); Albumin 3.2 g/dL (3.1-4.5); Alkaline Phosphatase 75 U/L (40-110); Anion Gap 14 mmol/L (10-20); BUN (Urea Nitrogen) 30 mg/dL (8.4-25.7); Bilirubin, Total 0.4 mg/dL (0.3-1.2); Calc. Creatinine Clearance 24 mL/min (70-130); Calcium 9.8 mg/dL (7.8-10.44); Carbon Dioxide 22 mmol/L (23-31); Chloride 108 mmol/L (98-107); Globulin 2.6 g/dL (2.4-3.5); Glucose 106 mg/dL (83-110); Magnesium 1.7 mg/dL (1.6-2.6); Potassium 4.0 mmol/L (3.5-5.1); Sodium 140 mmol/L (136-145)
[2025-04-24] MEDS: Levothyroxine 150 MCG TAB PO SCH (06:49)
[2025-04-24] MEDS: hydrALAZINE 20 MG/ML VIAL SLOW IVP PRN (08:07)
[2025-04-24] MEDS: Ondansetron PF 4 MG/2 ML Vial IVP PRN (09:30)
[2025-04-24] MEDS: Metoprolol Succinate XL 25 MG ER.TAB PO SCH (10:21)
[2025-04-25 06:41] LABS: Anion Gap 13 mmol/L (10-20); BUN (Urea Nitrogen) 33 mg/dL (8.4-25.7); Calc. Creatinine Clearance 19 mL/min (70-130); Calcium 9.7 mg/dL (7.8-10.44); Carbon Dioxide 22 mmol/L (23-31); Chloride 105 mmol/L (98-107); Glucose 92 mg/dL (83-110); Potassium 4.4 mmol/L (3.5-5.1); Sodium 136 mmol/L (136-145)
[2025-04-25] MEDS: Cyclobenzaprine 10 MG TAB PO SCH ×2 (17:08→21:18)
[2025-04-25] MEDS: Gabapentin 100 MG CAP PO SCH ×2 (17:09→21:18)
[2025-04-26 05:11] LABS: Anion Gap 12 mmol/L (10-20); BUN (Urea Nitrogen) 39 mg/dL (8.4-25.7); Calc. Creatinine Clearance 18 mL/min (70-130); Calcium 9.6 mg/dL (7.8-10.44); Carbon Dioxide 25 mmol/L (23-31); Chloride 104 mmol/L (98-107); Glucose 93 mg/dL (83-110); Magnesium 1.8 mg/dL (1.6-2.6); Potassium 4.2 mmol/L (3.5-5.1); Sodium 137 mmol/L (136-145)
[2025-04-26] MEDS: Transdermal Patch Removal TOP SCH (05:27)
[2025-04-26] MEDS: Albumin 25% 25 GM (100 mL) BOT IVPB SCH ×2 (09:46→12:26)
[2025-04-26 18:22] LABS: Albumin 4.0 g/dL (3.1-4.5); Anion Gap 11 mmol/L (10-20); BUN (Urea Nitrogen) 38 mg/dL (8.4-25.7); BUN/Creatinine Ratio 14.13; Calc. Creatinine Clearance 20 mL/min (70-130); Calcium 10.1 mg/dL (7.8-10.44); Carbon Dioxide 25 mmol/L (23-31); Chloride 105 mmol/L (98-107); Glucose 96 mg/dL (83-110); Potassium 4.2 mmol/L (3.5-5.1); Sodium 137 mmol/L (136-145)
[2025-04-27 05:04] LABS: Anion Gap 9 mmol/L (10-20); BUN (Urea Nitrogen) 45 mg/dL (8.4-25.7); Calc. Creatinine Clearance 20 mL/min (70-130); Calcium 9.9 mg/dL (7.8-10.44); Carbon Dioxide 23 mmol/L (23-31); Chloride 106 mmol/L (98-107); Glucose 93 mg/dL (83-110); Potassium 4.3 mmol/L (3.5-5.1); Sodium 134 mmol/L (136-145)
[2025-04-27 11:18] VITALS: TEMP 97.5
[2025-04-27 16:07] VITALS: BP 154/70
== END 2025-04-27 18:15 | DRG 291 ==
LOC: ERS 21:55 → CCU 04-23 01:42 → 2NO 04-24 16:07
PROVIDERS: ADMIT Student in an Organized Health Care Education/Training Program; ATTEND Internal Medicine
PROC: 30233J1 Transfusion of Nonautologous Serum Albumin into Peripheral Vein, Percutaneous Approach (ICD-10-PCS; principal; 2025-04-26)
DX: I13.0 Hypertensive heart and chronic kidney disease with heart failure and stage 1 through stage 4 chronic kidney disease, or unspecified chronic kidney disease (principal); I50.33 Acute on chronic diastolic (congestive) heart failure; I16.1 Hypertensive emergency; N18.4 Chronic kidney disease, stage 4 (severe); W19.XXXA Unspecified fall, initial encounter; E03.9 Hypothyroidism, unspecified; E78.5 Hyperlipidemia, unspecified; Z85.51 Personal history of malignant neoplasm of bladder; Z98.890 Other specified postprocedural states; D63.1 Anemia in chronic kidney disease; M54.9 Dorsalgia, unspecified; Z79.890 Hormone replacement therapy
CPT/HCPCS: 36415; 70450; 71250; 72125; 76770; 80048; 80053; 83735; 83880; 84443; 84484; 85025; 85610; 85730; 93005; 93306; 93798; J0360; J1940; J2405; J3010; J7030; J7050; P9047